=== PATIENT | male | born 1980 | race Caucasian/White ===

== ENCOUNTER 2020-08-10 10:25 | Outpatient (CLI) | payer BC | END 2020-08-10 10:26 | disposition home or self-care (01) | LOC: SCSRAD 10:25 | PROVIDERS: ATTEND Family Medicine | DX: R60.9 Edema, unspecified (principal) | CPT/HCPCS: 71046 ==

== ENCOUNTER 2020-08-20 09:17 | Outpatient (CLI) | payer BC | END 2020-08-20 09:18 | disposition home or self-care (01) | LOC: BICULT 09:17 | PROVIDERS: ATTEND Family Medicine | DX: I82.403 Acute embolism and thrombosis of unspecified deep veins of lower extremity, bilateral (principal) | CPT/HCPCS: 93970 ==

== ENCOUNTER 2020-09-08 08:59 | Outpatient (CLI) | payer BC ==
[2020-09-08] MEDS ORDERED: Iopamidol-370 76% 500 ML 1 ML ONE (10:00)
== END 2020-09-08 09:00 | disposition home or self-care (01) ==
LOC: BICCT 08:59
PROVIDERS: ATTEND Family Medicine
DX: R18.8 Other ascites (principal)
CPT/HCPCS: 74177; Q9967

== ENCOUNTER 2020-09-09 14:00 | Outpatient (CLI) | payer BC ==
[~2020-09-09 14:00] MED LIST: Iopamidol-370 76% 500 ML 1 ML ONE
== END 2020-09-09 14:01 | disposition home or self-care (01) ==
LOC: BICCT 14:00
PROVIDERS: ATTEND Family Medicine
DX: L04.9 Acute lymphadenitis, unspecified (principal); R59.0 Localized enlarged lymph nodes; R91.8 Other nonspecific abnormal finding of lung field
CPT/HCPCS: 71260; Q9967

== ENCOUNTER 2020-10-12 13:34 | Outpatient (CLI) | payer BC ==
[2020-10-13 11:47] LABS: SARS-CoV-2 PCR by NAA Not Detected (NotDetected)
== END 2020-10-12 13:35 | disposition home or self-care (01) ==
LOC: LABBT 13:34
PROVIDERS: ATTEND Thoracic Surgery (Cardiothoracic Vascular Surgery)
DX: Z01.818 Encounter for other preprocedural examination (principal); R59.0 Localized enlarged lymph nodes; Z20.822 Contact with and (suspected) exposure to COVID-19
CPT/HCPCS: 93005; 93010; U0003; U0005

== ENCOUNTER 2020-10-15 05:45 | Day surgery (SDC) | payer BC ==
[2020-10-14 10:57] VITALS: BMI 32.1
[2020-10-15] MEDS ORDERED: Fentanyl 100 MCG/2 ML VIAL ONE (06:56)
[2020-10-15] MEDS ORDERED: Midazolam HCl 2 mg/2 ml Vial ONE (06:56)
[2020-10-15] MEDS ORDERED: Bupivacaine PF 0.5% 30 ML VIAL ONE (06:58)
[2020-10-15] MEDS ORDERED: EPINEPHrine 1 MG/ML AMP ONE (06:58)
[2020-10-15] MEDS ORDERED: Rocuronium Bromide 10 MG/ML (10ML VIAL) ONE (07:27)
[2020-10-15] MEDS ORDERED: PROPOFOL 200 MG/20 ML VIAL ONE (07:27)
[2020-10-15] MEDS ORDERED: Glycopyrrolate 0.2 MG/ML 5 ML SYRINGE ONE (07:27)
[2020-10-15] MEDS ORDERED: Ondansetron PF 4 MG/2 ML Vial ONE (07:27)
[2020-10-15] MEDS ORDERED: Dexamethasone 20 MG/5 ML VIAL ONE (07:27)
[2020-10-16 14:38] LABS: Fungus Stain Final report (.)
== END 2020-10-15 10:10 | disposition home or self-care (01) ==
LOC: SDC 05:45
PROVIDERS: ATTEND Thoracic Surgery (Cardiothoracic Vascular Surgery)
PROC: 07B74ZX Excision of Thorax Lymphatic, Percutaneous Endoscopic Approach, Diagnostic (ICD-10-PCS; principal; 2020-10-15)
DX: I88.8 Other nonspecific lymphadenitis (principal); I10 Essential (primary) hypertension; Z79.899 Other long term (current) drug therapy
CPT/HCPCS: 87102; 87116; 87206; 88305; 88307; 88312; J0171; J0690; J1100; J2250; J2405; J2704; J3010; S0020

== ENCOUNTER 2021-05-05 13:15 | Outpatient (CLI) | payer BC | END 2021-05-05 13:16 | disposition home or self-care (01) | LOC: RAD 13:15 | PROVIDERS: ATTEND Internal Medicine Pulmonary Disease | DX: D86.9 Sarcoidosis, unspecified (principal) | CPT/HCPCS: 71046 ==

== ENCOUNTER 2022-08-26 09:44 | Outpatient (CLI) | payer BC | END 2022-08-26 09:45 | disposition home or self-care (01) | LOC: RAD 09:44 | PROVIDERS: ATTEND Internal Medicine Critical Care Medicine | DX: R06.00 Dyspnea, unspecified (principal) | CPT/HCPCS: 71046 ==

== ENCOUNTER 2023-08-30 10:18 | Outpatient (CLI) | payer BC | END 2023-08-30 10:19 | disposition home or self-care (01) | LOC: RAD 10:18 | PROVIDERS: ATTEND Internal Medicine Critical Care Medicine | DX: R06.00 Dyspnea, unspecified (principal) | CPT/HCPCS: 71046 ==